=== PATIENT | male | born 1950 | race Caucasian/White ===

== ENCOUNTER → 2019-07-28 | Outpatient (CLI) | payer MEDICARE, OTHER, SELFPAY ==
--- NOTE | 2019-07-28 12:09 | US_ITS ---
STUDY: SUPERFICIAL ULTRASOUND - LEFT FOOT REASON FOR EXAM: Male, 69 years old. Pain TECHNIQUE: A superficial ultrasound was performed with real-time and static patel-scale imaging. COMPARISON: None. FINDINGS: There is no sonographic abnormality identified in the patient's area of pain in the left foot. US/Ext Non Vasc Limited/Soft Tiss IMPRESSION: No sonographic abnormality identified in the patient's area of pain in the left foot. Electronically Signed: Palmer Esqueda, at 17:56 EDT Tel , Service support ,
== END | disposition home or self-care (01) ==
LOC: US 12:07
PROVIDERS: Family Provider Family Medicine; PCP Family Medicine; Referring Provider Nurse Practitioner Primary Care; Visit Provider Nurse Practitioner Primary Care
DX: M79.672 Pain in left foot (principal)
CPT/HCPCS: 76882

== ENCOUNTER 2020-12-24 01:28 | Emergency (ER) | payer MEDICARE, OTHER, SELFPAY ==
[2020-12-24 01:28] VITALS: TEMP 36.3; BMI 24.3
[2020-12-24 01:34] VITALS: BP 203/81; PULSE 72; RESP 16; O2SAT 98
--- NOTE | 2020-12-24 01:44 | CT_ITS ---
STUDY: CT ABDOMEN AND PELVIS WITHOUT CONTRAST REASON FOR EXAM: Male, 70 years old. Left flank pain RADIATION DOSAGE (If Supplied By Facility): CTDIvol = ( 6.79 ) mGy, DLP = ( 330.58 ) mGycm TECHNIQUE: Transaxial images were obtained from the dome of the diaphragm to the symphysis pubis without oral contrast, and without intravenous contrast. Sagittal and coronal images were reconstructed. Left flank pain. Individualized dose optimization techniques were used for this CT. COMPARISON: 02/01/2012. FINDINGS: The study is limited due to lack of intravenous contrast. Lung bases clear. Mildly enlarged spleen measuring 14.7 cm in diameter. Unremarkable liver, pancreas, and adrenals on this unenhanced study. No definite cholelithiasis. Multiple left renal stones measuring up to 0.6 cm in the lower pole. Mild left-sided hydroureteronephrosis secondary to a 0.6 cm stone in the distal ureter at the level of pelvic brim. No radiopaque stone in the right kidney.. Moderate to large amount of retained stool in the distal colon. Bowel loops nonobstructed. No CT evidence of acute appendicitis. Vascular constipation with no abdominal aortic aneurysm. No free air or free fluid. Status post left lower anterior abdominal wall hernia repair. Small fat-containing left inguinal hernia. Area 0.4 cm stone at the right UVJ. Nonobstructing hydroureteronephrosis. Enlarged prostate gland. Multilevel thoracolumbar spondylosis. CT/Abdomen/Pelvis without Cont IMPRESSION: A 0.6 cm stone in the distal left ureter at the level of the pelvic brim causing mild upstream hydroureteronephrosis. Multiple nonobstructing subcentimeter left renal stones. A 0.4 cm stone at the right UVJ. No upstream hydroureteronephrosis. Electronically Signed: Ulysses Youssef MD at 2:59 EDT Tel , Service support ,
--- NOTE | 2020-12-24 01:44 | ED.VIS.GI ---
History of Present Illness Chief Complaint: Flank Pain Informant: Patient - Abdominal Pain/Flank Pain Onset: Hours - 5 Context: Sudden Onset Timing: Continuous, Waxes and wanes Quality: Aching Location: LLQ - w/ radiation into left low back Current Severity: Moderate Maximum Severity: Severe Worsened by: Nothing Relieved by: Nothing - Nausea/Vomiting/Emesis GI Symptom: Nausea, Vomiting Severity: Moderate - Diarrhea/Melena/Hematochezia GI Symptom: Negative for: Diarrhea, Melena, Hematochezia Associated Symptoms: Negative for: Dysuria, Frequency, Hematuria Narrative: 70-year-old male with a history of kidney stones feels like he is having similar pain that started suddenly about 5 hours ago tonight, 2 prior stones except he is vomiting more than usual. No urinary symptoms, fevers or chills, was feeling well prior to this except for malaise within the last several days since he had his second Covid vaccine. Patient sees Dr. Knapp for urology care. He had to have a couple stones removed but the majority of them he has passed. - Past Medical History (1) Chronic neutropenia Status: Chronic (2) Type II diabetes mellitus Status: Chronic Past Medical History - Allergies and Home Meds Allergies/Adverse Reactions: Allergies NSAIDS (Non-Steroidal Anti-Inflamma Adverse Reaction (Verified 12/24/20 01:33) Other CHRONIC LOW WBC COUNT Primary Care Physician: Tunde Rosario MD [Primary Care Provider] - Smoking Status: Former smoker Review of Systems General: Denies: Chills, Fever, Sweats Eyes: Denies: Visual changes - bilaterally, Diplopia ENT: Denies: Rhinorrhea, Sore throat Cardiovascular: Denies: Chest pain, Palpitations Respiratory: Denies: Dyspnea, Cough, Dyspnea on exertion Gastrointestinal: Reports: Abdominal pain, Nausea, Vomiting. Denies: Diarrhea, Melena, Hematochezia Genitourinary: Denies: Dysuria, Hematuria, Frequency Musculoskeletal: Reports: Back pain. Denies: Extremity Pain Skin: Denies: Rash, Wounds Neurological: Denies: Headache, Weakness, Numbness Physical Exam Vital Signs/Narrative: Vital Signs Temp Pulse Resp BP Pulse Ox 12/24/20 01:34 72 16 203/81 H 98 12/24/20 01:28 97.4 F L Inital Vital Signs reviewed: Yes General: Well nourished, Well developed, Acute Distress - Mild painful due to pain Head: Normocephalic, Atraumatic Eyes: Perrl, EOMI ENT: Moist mucous membranes, No rhinorrhea Neck: Supple, Nontender Cardiovascular: Regular rate, Regular rhythm, No murmurs Respiratory: No distress, CTA bilaterally, Chest nontender Abdomen: Soft, Nontender, Nondistended, Normal bowel sounds. Negative for: Pulsatile mass Back: Nontender, Normal Inspection. Negative for: CVA tenderness Extremities: Nontender, No edema Skin: Normal color, No rash Neurological: Alert, Oriented x3, Cranial nerves II-XII grossly intact, Normal Strength, Normal Sensation, Normal Gait Psychological: Normal affect, Normal Mood Diagnostic/Tx/Re-eval Impressions Abdomen/Pelvis CT 12/24/20 01:44 IMPRESSION: A 0.6 cm stone in the distal left ureter at the level of the pelvic brim causing mild upstream hydroureteronephrosis. Multiple nonobstructing subcentimeter left renal stones. A 0.4 cm stone at the right UVJ. No upstream hydroureteronephrosis. Electronically Signed: Ulysses Youssef MD at 2:59 EDT Tel , Service support , 12/24/20 01:44 CT Abd [Abdomen/Pelvis without Cont] [CT] Stat Laboratory Results 12/24/20 12/24/20 12/24/20 01:35 01:35 02:40 WBC 4.8 RBC 4.90 Hgb 15.1 Hct 43.1 MCV 88.0 MCH 30.8 MCHC 35.0 RDW Std Deviation 40.4 RDW Coeff of [place] 12.5 Plt Count 241 MPV 9.6 Immature Gran % (Auto) 0.600 Neut % (Auto) 69.4 Lymph % (Auto) 14.5 L [place] % (Auto) 13.2 H Eos % (Auto) 1.9 Baso % (Auto) 0.4 Absolute Neuts (auto) 3.3 Absolute Lymphs (auto) 0.69 L Nucleated RBC % 0 Sodium 137 Potassium 4.4 Chloride 99 Carbon Dioxide 30.0 Anion Gap 8 BUN 25 H Creatinine 1.55 H Estim Creat Clear Calc 39.45 Est GFR (MDRD) Af Amer 57 L Est GFR (MDRD) Non-Af 47 L BUN/Creatinine Ratio 16.1 Glucose 259 H Calcium 9.6 Urine Color Yellow Urine Clarity Clear Urine pH 6.5 Ur Specific [place] 1.015 Urine Protein Negative Urine Glucose (UA) 100 H Urine Ketones 5 H Urine Occult Blood 150 H Urine Nitrite Negative Urine Bilirubin Negative Urine Urobilinogen Normal Ur Leukocyte Esterase Negative Urine RBC 10-25 SEEN Urine WBC 0 SEEN Ur Squamous Epith Cells 0 SEEN Urine Bacteria RARE Urine Mucus 0 SEEN - Medical Decision Making Patient was initially given morphine and Zofran, morphine did not help his pain so he was given another dose, which really gave him some relief for a couple of hours. His creatinine is a little higher than baseline for him, and he has stones bilaterally although he is only obstructing on one side. I discussed the findings with him. We kept him here for a while making sure his pain was well controlled, in the end it started coming back a little so I gave him an oral oxycodone which helped to keep it well controlled and he was comfortable going home. He is well-appearing at discharge. His pressure still high so he needs to have that rechecked as an outpatient. I suspect it is due to his pain. I attempted to discuss follow-up with his urologist [place]. I did discuss the possibility of admitting for pain control, and reasons to return to the ER, he understands that he may have to be transferred if that is the case because we do not have any urology coverage. ED Disposition - Plan for ED Patient: Disposition: Home or Assisted Living Diagnosis: Ureterolithiasis, Renal colic on left side, Left nephrolithiasis Instructions: ED Kidney Stone w/ Colic Prescriptions: Oxycodone HCl/Acetaminophen [Percocet 5/325] 1 tablet PO Q6H PRN PRN 4 Days #15 tab PRN Reason: Pain Prescription Printed Ondansetron [Zofran Odt] 8 mg PO Q8H PRN PRN #20 tablet PRN Reason: Nausea Prescription Printed Referrals: Tunde Rosario MD [Primary Care Provider] - Isaias Knapp MD [STAFF PHYSICIAN] - 1 Week if not improving
[2020-12-24] MEDS: Ondansetron 4 MG/2 ML Vial IV (01:50)
[2020-12-24] MEDS: Morphine 4 MG/ML Syringe IV ×2 (01:50→03:32)
[2020-12-24] MEDS: 0.9% Normal Saline 1,000 ML 250 ML IV (01:50)
[2020-12-24 01:51] LABS: Absolute Lymphocyte Count 0.69 X10^3/uL (0.83-4.51); Absolute Neutrophil Count 3.3 X10^3/uL (2.0-7.7); Basophil# 0.02 X10^3/uL; Basophil% 0.4 % (0-1); Eosinophil# 0.09 X10^3/uL; Eosinophils% 1.9 % (0-5); Hematocrit 43.1 % (40-54); Hemoglobin 15.1 g/dL (13.0-16.5); Lymphocyte # 0.69 X10^3/ul (4.0); Lymphocyte % 14.5 % (19-41); Mean Corpuscular Hgb 30.8 pg (27.0-32.0); Mean Platelet Vol. 9.6 fl (6.2-12.0); Monocyte# 0.63 X10^3/uL; Monocyte% 13.2 % (0-10); NRBC Flagged by Analyzer 0 % (0-5); Neutrophil # 3.31 X10^3/uL (2.7-7.7); Neutrophil % 69.4 % (47-70); Platelet Count 241 K/mm3 (150-450); RBC Distribution Width CV 12.5 % (11.6-14.6); RBC Distribution Width SD 40.4 fl (35.1-43.9); White Blood Count 4.8 K/mm3 (4.4-11.0)
[2020-12-24 02:07] LABS: Anion Gap 8 (5-15); BUN 25 mg/dL (7-18); BUN/Creat Ratio 16.1 RATIO (10-20); Calcium,Total 9.6 mg/dL (8.5-10.1); Chloride 99 mmol/L (98-107); Creatinine, Serum 1.55 mg/dL (0.70-1.30); EST Glomerular Filtration Rate 47 mL/min (>60); Est Glom Filt Rate - Afr Amer 57 mL/min (>60); Estimated Creatinine Clearance 39.45 ml/min; Glucose 259 mg/dL (74-106); Potassium 4.4 mmol/L (3.5-5.1); Sodium Level 137 mmol/L (136-145)
[2020-12-24 02:46] LABS: Mucous, Urine 0 SEEN /hpf (<or=2+); Squamous Epithelial Cells - UA 0 SEEN /hpf (0-5); White Blood Cells 0 SEEN /hpf (0-5)
[2020-12-24 02:48] LABS: Color, Urine Yellow (Yellow); Glucose, Dipstick 100 mg/dl (Normal); Ketone-Dipstick 5 mg/dl (Negative); Leukocyte Esterase-Dipstick Negative /ul (Negative); Nitrite-Dipstick Negative (Negative); Occult Blood-Urine 150 /ul (Negative); Protein-Dipstick Negative (Negative); Specific Gravity, Urine 1.015 (1.002-1.030); Urine Bilirubin Dipstick Negative (Negative); Urine Clarity Clear (Clear); Urine Urobilinogen Normal (Normal); Urine pH 6.5 (5.0 - 8.0)
[2020-12-24 02:56] LABS: Bacteria RARE /hpf (None Seen); Red Blood Cells-Urine 10-25 SEEN /hpf (0-5)
[2020-12-24 03:32] VITALS: BP 205/39; BP 205/89; PULSE 73; PULSE 75; RESP 16; O2SAT 97; O2SAT 98
[2020-12-24] MEDS: oxyCODONE 5 MG Tablet PO (06:14)
[2020-12-24 06:17] VITALS: BP 176/76; PULSE 66; RESP 19; O2SAT 97
[2020-12-24] MEDS: Morphine 2 MG/ML Syringe IV (07:08)
[2020-12-24 08:05] VITALS: BP 171/73; PULSE 77; O2SAT 95
== END 2020-12-24 08:06 | disposition home or self-care (01) ==
PROVIDERS: Emergency Provider Emergency Medicine; PCP Family Medicine
DX: N13.2 Hydronephrosis with renal and ureteral calculous obstruction (principal); E11.9 Type 2 diabetes mellitus without complications; Z87.891 Personal history of nicotine dependence; Z87.442 Personal history of urinary calculi; Z79.84 Long term (current) use of oral hypoglycemic drugs; Z79.82 Long term (current) use of aspirin
CPT/HCPCS: 74176; 80048; 81001; 85025; 96361; 96374; 96375; 96376; 99284; J7030; A4216; J2405